=== PATIENT | male | born 1955 | race Caucasian/White ===

== ENCOUNTER 2017-08-22 15:30 | Emergency (ER) | payer MEDICARE, BC ==
[2017-08-22] MEDS ORDERED: KEFLEX 500 MG PO ONE (15:47)
[2017-08-22] MEDS ORDERED: Adacel Vial IM ONE ×2 (15:47→16:12)
--- NOTE | 2017-08-22 15:50 | ERPHSYRPT ---
- History of Present Illness Time Seen by Provider: 08/22/17 15:48 Source: patient Physician History: pt scratched by the dogs paw today scow captain on the left forearm, oozing, no other injury Allergies/Adverse Reactions: Sulfa (Sulfonamide Antibiotics) [Sulfa(Sulfonamide Antibiotics)] Adverse Reaction (Mild, Verified 08/22/17 15:50) nauseated Home Medications: Amlodipine Besylate 10 mg DAILY 08/22/17 [History] Atorvastatin Calcium [Lipitor] 20 mg DAILY 08/22/17 [History] Donepezil HCl 10 mg DAILY 08/22/17 [History] Finasteride 5 mg DAILY 08/22/17 [History] Gabapentin 300 mg TID 08/22/17 [History] Oxybutynin Chloride 5 mg [Ditropan 5 MG] 5 mg DAILY 08/22/17 [History] PANTOPRAZOLE 40 mg Tablet [Protonix 40MG Tablet] 40 mg DAILY 08/22/17 [ History] Tamsulosin HCl 0.4 mg DAILY 08/22/17 [History] Warfarin Sodium 5 mg DAILY 08/22/17 [History] Hx Tetanus, Diphtheria Vaccination/Date Given: (unknown) Hx Influenza Vaccination/Date Given: Yes (2011) Hx Pneumococcal Vaccination/Date Given: No - Review of Systems Constitutional: No Fever Musculoskeletal: No Joint Pain Skin: Skin Lesions Neurological: No Dizziness - Past Medical History Pertinent Past Medical History: Yes Cardiac History: Hypertension Musculoskeletal History: Degenerative Disk Disease (back - MRI done last week and referred to Dr Waggoner/ Jack[facility] ) Other Medical History: hairy cell leukemia - Past Surgical History Past Surgical History: No Other Surgical History: 8 BONE MARROW TAPS, SURGERY TO REMOVED CYST - Social History Smoking Status: Never smoker Exposure to second hand smoke: No Alcohol Use: None Drug Use: none Patient Lives Alone: No - Nursing Vital Signs Nursing Vital Signs: Initial Vital Signs Temperature 98.0 F 08/22/17 15:44 Pulse Rate 68 08/22/17 15:44 Respiratory Rate 16 08/22/17 15:44 Blood Pressure 121/76 08/22/17 15:44 O2 Sat by Pulse Oximetry 98 08/22/17 15:44 Pain Scale Pain Intensity 0 - Physical Exam General Appearance: no apparent distress Extremity Exam: other (1/2cm abrasion on the dorsal left distal forearm, nontender bony arm, virgie, sen and pulses intact) Neurologic Exam: alert, oriented x 3, cooperative - Course Nursing assessment & vital signs reviewed: Yes Ordered Tests: Active Orders 24 hr Category Date Time Status Dressing Care ROUTINE Care 08/22/17 15:47 Active Medication Summary Discontinued Medications Generic Name Dose Route Start Last Admin Trade Name Freq PRN Reason Stop Dose Admin Cephalexin HCl 500 mg 08/22/17 15:47 Keflex 500 Mg PO 08/22/17 15:48 STAT ONE Diphtheria/Tetanus/Acell Pertussis 0.5 ml 08/22/17 15:47 Adacel Vial IM 08/22/17 15:48 .ONCE ONE - Progress Progress: improved Counseled pt/family regarding: need for follow-up - Departure Time of Disposition: 16:14 Departure Disposition: Home Clinical Impression: Abrasion Condition: Stable Critical Care Time: No Referrals: WALTER GALINDO [Primary Care Provider] - Instructions: Wound Care (DC) Prescriptions: Cephalexin Mh 500 mg [Keflex 500 mg] 1 cap PO QID #40 capsule
[2017-08-22] MEDS ORDERED: KEFLEX 500 MG ONE (16:12)
[2017-08-22 16:34] VITALS: BP 141/74; PULSE 61; O2SAT 99
== END 2017-08-22 16:35 | disposition home or self-care (01) ==
LOC: ED 15:30
DX: S50.812A Abrasion of left forearm, initial encounter (principal); W54.8XXA Other contact with dog, initial encounter; Z79.01 Long term (current) use of anticoagulants; Z79.899 Other long term (current) drug therapy; Z85.6 Personal history of leukemia
CPT/HCPCS: 90471; 90715; 96372; 99284; A9270-GY